=== PATIENT | male | born 1945 | race Caucasian/White ===

== ENCOUNTER 2018-05-11 15:56 | Inpatient (IN) | payer OTHER ==
[~2018-05-11] VITALS: Ht 152.4 cm; Wt 81.6 kg
--- NOTE | ~2018-05-11 | H ---
[address] [address] HISTORY AND PHYSICAL Name: JUNIOR MARTIN Room: [address] IN ..#: [id number] Admission: 05/11/18 Attend Phys: Kishan Zhu MD Discharge: Date of : 41 Report #: [id number] THIS REPORT FOR: //name// For History and Physical please refer to the dictated consultation note in the patient's medical record. By: 0644Medical Records Staff JAMES /BARBARA
[~2018-05-11 15:56] MED LIST: AVODART0.5 MG PO; CELEXA40 MG PO; COLACE100 MG PO; GLYCOLAX POWDER17 G1 PO; OS-CAL 500+D C1 EACH PO; TAMSULOSIN HCL0.4 M1 PO
[2018-05-11 16:02] VITALS: BP 186/119
[2018-05-11 16:18] LABS: ABSOLUTE BASOPHILS 0.1 thou/uL (0.0-0.2); ABSOLUTE EOSINOPHILS 0.1 thou/uL (0.0-0.7); ABSOLUTE LYMPHOCYTES 3.9 thou/uL (0.8-5.3); ABSOLUTE MONOCYTES 0.9 thou/uL (0.0-1.2); ABSOLUTE NEUTROPHILS 5.8 thou/uL (1.6-8.1); BASOPHILS 0.9 %; EOSINOPHILS 1.1 %; HEMATOCRIT 52.6 % (42.0-52.0); HEMOGLOBIN 17.6 gm/dL (14.0-18.0); LYMPHOCYTES 36.1 %; MCH 29.5 pg (26.0-34.0); MCHC 33.4 g/dL (28.0-37.0); MCV 88.4 fL (80.0-100.0); MPV 8.6 fl. (7.2-11.1); NUCLEATED RBCS 0 /100WBC; PLATELET COUNT* 210 thou/uL (150-400); POLYS 53.9 %; RBC 5.95 mil/uL (4.50-6.00); RDW-CV 14.2 % (10.5-14.5); WBC 10.7 thou/uL (4.0-11.0)
[2018-05-11 16:26] LABS: CALCIUM 9.6 mg/dL (8.5-10.1); POTASSIUM 3.7 mmol/L (3.5-5.1)
[2018-05-11 16:31] LABS: APTT 32.8 Seconds (25.0-31.3); PROTIME 10.1 Seconds (9.20-11.50)
[2018-05-11 16:38] LABS: TOTAL BILIRUBIN 0.6 mg/dL (<0.1-1.0); TOTAL PROTEIN 8.2 g/dL (6.4-8.2); TROPONIN-I LEVEL 0.29 ng/mL (<0.06)
[2018-05-11 18:10] VITALS: BP 146/95
--- NOTE | 2018-05-11 18:10 | NUR ---
DOCUMENTATION OF NSG STUDENT Lucille LEMUS REVIEWED & AGREE W/ SAME.
--- NOTE | 2018-05-11 19:28 | NUR ---
ADMITTED FROM ED DENIES CP AT THIS TIME. DR MARLEY PAGED. NO ANSWER.
[2018-05-11 20:00] VITALS: BP 114/80
[2018-05-11 22:00] VITALS: BP 107/78
[2018-05-12] VITALS (33 sets, daily range): BP systolic 95–184; BP diastolic 64–122
--- NOTE | 2018-05-12 06:17 | NUR ---
ASSUMED CARE OF PT AT 1900 PT ALERT AND ORIENTED X4 VS AND ASSESSMENT STABLE PT DENIED ANY CP ONLY COMPLAINT WAS THAT HE WASNT ABLE TO SLEEP OBTAINED ORDERS FOR X1 AMBIEN WITH GOOD EFFECT PT SLEPT THROUGH THE NIGHT AFTER THAT. PT RUNNING SB TO NSR ON THE MONITOR. WILL CONTIUNE EMMETTN OF CARE.
[2018-05-12 09:18] LABS: INR 1.1; PROTIME 10.7 Seconds (9.20-11.50)
[2018-05-12 13:58] LABS: BUN 13 mg/dL (7-18); CHLORIDE 107 mmol/L (98-107); POTASSIUM 4.1 mmol/L (3.5-5.1); SODIUM 139 mmol/L (136-145)
[2018-05-12 13:59] LABS: ANION GAP 10 mmol/L (7-16); CALCIUM 8.8 mg/dL (8.5-10.1); CHOLESTEROL 172 mg/dL (<200); CO2 22 mmol/L (21-32); CREATININE 0.9 mg/dL (0.6-1.3); GLUCOSE 90 mg/dL (70-99); HDL CHOLESTEROL 35 mg/dL (>40); LDL CHOLESTEROL 121 mg/dL (<100); TC:HDL 4.9 Ratio (Not establshd); TRIGLYCERIDE 83 mg/dL (<150); VLDL 17 mg/dL (<40)
[2018-05-12 14:02] LABS: SERUM ASSESSMENT Clear
--- NOTE | 2018-05-12 17:16 | EKG ---
[place] [address] ELECTROCARDIOGRAM REPORT Name: JUNIOR MARTIN Room: [address] ADM IN M.R.#: [id number] Admission: 05/11/18 Attend Phys: Kishan Zhu MD Discharge: Date of : 41 Report #: [id number] THIS REPORT FOR: //name// [facility] ED Test Date: 2018-05-11 Test Time: 16:01:26 Pat Name: JUNIOR MARTIN Department: Room: [facility] Gender: M Platform Beater: TIERRA : 1945 Requested By: Gabby Hernández Order Number: [id number] MD: Kishan Zhu Measurements Intervals [place] Rate: 85 P: 29 OR: 150 QRS: -43 QRSD: 98 T: 0 QT: 348 QTc: 414 Interpretive Statements Sinus rhythm Left anterior fascicular block Repol abnrm suggests ischemia, diffuse leads Compared to ECG 09/06/2012 15:52:12 Early repolarization now present Possible ischemia now present Electronically Signed On 05-12-2018 17:16:29 CDT by Kishan Zhu [email or web address] <ELECTRONICALLY SIGNED> By: Kishan Zhu MD, FACC 05/12/18 1716 1601 1601 Kishan Zhu MD, [facility] /EPI
--- NOTE | 2018-05-12 17:22 | EKG ---
[place] [address] ELECTROCARDIOGRAM REPORT Name: JUNIOR MARTIN Room: [address] ADM IN M.R.#: [id number] Admission: 05/11/18 Attend Phys: Kishan Zhu MD Discharge: Date of : 41 Report #: [id number] THIS REPORT FOR: //name// [facility] Test Date: 2018-05-12 Test Time: 13:37:10 Pat Name: JUNIOR MARTIN Department: Room: [address] Gender: M Supplier Development Manager: : 1945 Requested By: Asher Phelps Order Number: [id number] Izabel MD: Kishan Zhu Measurements Intervals [place] Rate: 70 P: 19 TN: 161 QRS: -43 QRSD: 105 T: 28 QT: 410 QTc: 443 Interpretive Statements Sinus rhythm Left anterior fascicular block Compared to ECG 09/06/2012 15:52:12 Repolarization abnormalities no longer present Electronically Signed On 05-12-2018 17:22:44 CDT by Kishan Zhu [email or web address] <ELECTRONICALLY SIGNED> By: Kishan Zhu MD, [facility] 05/12/18 1722 1337 1337 Kishan Zhu MD, [facility] /EPI
--- NOTE | 2018-05-12 17:34 | NUR ---
PT CARE ASSUMED THIS AM. SR ON MONITOR. O2 2L NC. PT TO OPERATIONS PROGRAM MANAGER AT APPROX 1145. STENT PLACED THROUGH R GROIN. CATH SITE WITH SMALL AMOUNT OF BLOODY DRAINAGE TO BANDAGE AND A SMALL AMOUNT OF BRUISING. NO HEMATOMA. PT UP VERY FREQUENTLY TO URINATE. VOMITED X1 AFTER PROCEDURE. IV ZOFRAN GIVEN. DENIES PAIN. PROGRESSING TOWARDS GOALS.
--- NOTE | 2018-05-12 20:55 | NUR ---
PT. TRANSFERRED VIA WHEELCHAIR TO ROOM 231 AT 2034, REPORT GIVEN TO SONYA STONE. QUESTIONS DENIED.
[2018-05-13 04:00] VITALS: BP 76/46
[2018-05-13 04:44] LABS: HEMATOCRIT 46.1 % (42.0-52.0); MCH 29.1 pg (26.0-34.0); MCHC 32.7 g/dL (28.0-37.0); MCV 89.1 fL (80.0-100.0); MPV 8.7 fl. (7.2-11.1); RBC 5.18 mil/uL (4.50-6.00); RDW-CV 14.3 % (10.5-14.5); WBC 8.3 thou/uL (4.0-11.0)
[2018-05-13 04:58] LABS: HEMOGLOBIN 15.1 gm/dL (14.0-18.0)
[2018-05-13 05:13] VITALS: BP 96/52
--- NOTE | 2018-05-13 06:51 | NUR ---
PT IS ABLE TO COMMUNICATE HIS NEEDS TO STAFF EFFECTIVELY. HE HAS DENIED THE NEED FOR PAIN RELIEF MEDICATION UP TO THIS TIME. PT WAS TRANSFERED FROM ICU TO ROOM 231 DURING THIS SHIFT; VSS, A+OX4. PT HAS VOIDED SEVERAL TIMES SINCE ARRIVING ON . RIGHT GROIN CATH SITE HAS SOME OLD BLOOD, BUT IS INTACT AND SHOWES NO OBSERVABLE EVIDENCE OF A HEMATOMA UP TO THIS TIME. LIKELY DISCHARGE TODAY.
[2018-05-13 08:00] VITALS: BP 103/66
--- NOTE | 2018-05-13 08:44 | CON ---
[address] [address] CONSULTATION Name: RAADEDAJUNIOR Room: [address] IN M.R.#: [id number] Admission: 05/11/18 Attend Phys: Kishan Zhu MD Discharge: Date of : 43 Report #: [id number] THIS REPORT FOR: //name// CC: HUANG Zhu INDICATION: Non-ST elevation myocardial infarction. HISTORY OF PRESENT ILLNESS: The patient is a very pleasant 72-year-old gentleman with no prior cardiac history. He was admitted to the emergency room yesterday with complaints of chest pain. He was found to have an elevated troponin consistent with non-ST elevation myocardial infarction. EKG showed sinus rhythm without acute changes. His only cardiac risk factor is hyperlipidemia. His father had a heart attack in his 70s. He does not smoke. He is not diabetic. He is not hypertensive. At the time of interview, he was chest pain free. He describes the pain beginning at 11:00 yesterday and being intermittent. It radiated to both arms and it was associated with nausea, vomiting and diaphoresis. When the pain recurred, the patient reported to the emergency room and was given nitroglycerin with partial relief and then morphine with complete relief of his chest discomfort. PAST MEDICAL HISTORY: 1. Hypercalcemia, status post parathyroidectomy. 2. Benign prostatic hypertrophy. 3. Depression. PAST SURGICAL HISTORY: 1. Herniorrhaphy. 2. Appendectomy. SOCIAL HISTORY: The patient does not smoke. He does not drink alcohol. ALLERGIES: None reported. HOME MEDICATIONS: None. REVIEW OF SYSTEMS: NEUROLOGIC: He denies convulsions, seizures or focal paralysis. GENERAL: There is no unexplained weight loss or fever. RESPIRATORY: He denies cough, sputum production or underlying lung disease. CARDIAC: As outlined above. GASTROINTESTINAL: Nausea and vomiting, but no hematemesis, melena, or hematochezia. GENITOURINARY: No [place] [address] CONSULTATION Name: RAADEDAJUNIOR Room: [address]#: [id number] Admission: 05/11/18 Attend Phys: Kishan Zhu MD Discharge: Date of : 43 Report #: [id number] HEMATOLOGIC AND LYMPHATIC: No bleeding, anemia, blood clots, or cancer. ALLERGY AND IMMUNOLOGIC: No significant seasonal or medical allergies. PSYCHIATRIC: He has mild depression, no anxiety. 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 SKIN: No recent rashes, hives or chronic skin conditions. EYES: He does wear glasses, but has no acute visual loss. PHYSICAL EXAMINATION: VITAL SIGNS: Stable. Blood pressure 128/83, pulse of 68 and regular. GENERAL: This is a pleasant gentleman, in no distress. Mood and affect appropriate. HEENT: Extraocular muscles intact. Mucous membranes are moist. NECK: Shows no jugular venous distention. There are no carotid bruits. CHEST: Reveals clear lung garay without wheezes or rales. CARDIAC: Reveals regular rhythm with normal S1 and S2. I do not appreciate gallop or murmur. ABDOMEN: Reveals normal bowel sounds. The abdomen is soft and nontender. EXTREMITIES: Shows no edema. Peripheral pulses are 2+ and easily palpable. SKIN: Warm and dry. LABS: Reviewed. Electrolytes, BUN and creatinine are normal. LFTs are normal. Troponin peak 7.37. Lipid profile is pending. White blood cell count 10.7, hemoglobin 17.6, and platelet count 210,000. Chest x-ray shows no acute cardiopulmonary abnormality. IMPRESSION AND RECOMMENDATIONS: 1. Non-ST elevation myocardial infarction. The patient has been started on a heparin drip and given aspirin. We will take to the cardiac catheterization lab for angiography and possible intervention. 2. Probable hyperlipidemia. We will start statin agent. Fasting lipid profile pending. <ELECTRONICALLY SIGNED> By: Kishan Zhu MD, FACC 05/13/18 0844 0856 1024Micmorgan Zhu MD, FACC /nt
[2018-05-13] MEDS ORDERED: ASPIR 8181 MG PO (09:23)
[2018-05-13] MEDS ORDERED: PLAVIX 75 MG TA75 M1 PO (09:23)
[2018-05-13] MEDS ORDERED: LIPITOR40 MG PO (09:23)
[2018-05-13] MEDS ORDERED: LOPRESSOR50 PO (09:23)
[2018-05-13 10:00] VITALS: BP 183/118
--- NOTE | 2018-05-13 10:00 | NUR ---
VSS ASSUMED CARE IN THE AM, ASSESSMENT PERFORMED AND CHARTED, FALL PRECAUTION IN PLACE AND CALL LIGHT IN REACH, PT IS A&O4 AND ON RA AND DENIES ANY PAIN RIGHT GROIN CATH SITE IS C/D/I, PT IS TRACING SR ON THE MONITOR AND IS UP AD JEAN PAUL, AT THIS TIME I HAVE RECIEVED D/C ORDERS, AND FILLED OUT D/C PAPERS, PT IV AND TELE MONITOR WHERE TAKEN OFF, SCRIPTS AND DRUG INFO SHEETS GIVEN TO PT, PT WALKED OUT WITH STAFFT TO CAR, PT BELONGINGS GATHERED AND PLACED IN BAG, PT DENIES ANY QUESTIONS AT TIME OF D/C, HOURLY ROUNDS COMPLETED.
[2018-05-13 10:53] VITALS: BP 103/66; BP 183/118
--- NOTE | 2018-05-13 11:18 | EKG ---
[place] [address] ELECTROCARDIOGRAM REPORT Name: JUNIOR MARTIN Room: [address] ADM IN M.R.#: [id number] Admission: 05/11/18 Attend Phys: Kishan Zhu MD Discharge: Date of : 41 Report #: [id number] THIS REPORT FOR: //name// [facility] Test Date: 2018-05-13 Test Time: 08:21:33 Pat Name: JUNIOR MARTIN Department: Room: [facility] Gender: M Jumpbasting Canvas Baster: : 1945 Requested By: Asher Phelps Order Number: [id number] Reading MD: Asher Phelps Measurements Intervals [place] Rate: 65 P: 12 OK: 168 QRS: -43 QRSD: 97 T: 55 QT: 470 QTc: 489 Interpretive Statements Sinus rhythm Left anterior fascicular block Borderline prolonged QT interval Compared to ECG 05/12/2018 13:37:10 No significant changes Electronically Signed On 05-13-2018 11:17:52 CDT by Asher Phelps [email or web address] <ELECTRONICALLY SIGNED> By: Asher Phelps MD, [facility] 05/13/18 1117 0 0 Asher Phelps MD, [facility] /EPI
--- NOTE | 2018-05-13 16:21 | CARD ---
[address] [address] CARDIAC CATH REPORT Name: NELLJUNIOR HARVEY Lynne Room: [address]#: [id number] Admission: 05/11/18 Attend Phys: Kishan Zhu MD Discharge: 05/13/18 Date of : 43 Report #: [id number] THIS REPORT FOR: //name// APPROVED REPORT Study performed: 05/12/2018 11:31:55 Patient Details Patient Status: In-Patient Room #: The patient is a 72 year-old male Event Personnel Kishan Zhu Loader Helper, Henrietta Mccormick RN RN, Zeus Jaimes, Lisa Rosas RTR Scrub, Asher Phelps Loader Helper Procedures Performed cath pci Indication Non-STEMI Risk Factors Arterial Hypertension, Hypercholesterolemia Admission/Lab Medications/Medications given during procedure Glycoprotein IllbIlla Inhibitors, Heparin Unfract. Procedure Narrative The patient was brought electively to the Cardiac Catheterization Laboratory and was prepped and draped in a sterile manner. The right femoral was infiltrated with 1% Lidocaine subcutaneous anesthesia. A 6fr Ultimum Sheath sheath was inserted into the right femoral artery. Coronary angiography was performed using coronary diagnostic catheters. The right coronary system was accessed and visualized with a Diagnostic - JR4 catheter. The left coronary system was accessed and visualized with a Diagnostic - JL4 catheter. The left ventricle was accessed and visualized with a Diagnostic - ANG PIG catheter. Left ventricular/Aortic Valve gradient assessed via catheter pullback. Left ventriculogram was performed in BEARD projection. Closure device was deployed with a 6 Fr Angioseal. The patient tolerated the procedure well and there were no complications associated with the procedure. [place] [address] CARDIAC CATH REPORT Name: JUNIOR MARTIN Room: [address]#: [id number] Admission: 05/11/18 Attend Phys: Kishan Zhu MD Discharge: 05/13/18 Date of : 43 Report #: [id number] Intraoperative Conscious Sedation Sedation start time: 1210 Case end Time: 1256 Fentanyl 25 mcg Versed 2 mg Fluoro Time: 6.6 minutes Dose: DAP 134673 cGycm2 1762 mGy Contrast Type and Amount: Visipaque 205 ml Coronary Angiography The patient's coronary anatomy is right dominant. Diagnostic Cath Left Main Normal LAD 70% proximal stenoses at the bifurcation and involving the ostium of the first diagonal branch. The remainder the vessel is free of significant disease. Diagonal 1 70% ostial narrowing. Diagonal 2 10% proximal narrowing. Circumflex 99% subtotal occlusion proximally. 50% narrowing in the midportion. OM1 Normal. OM2 Mild 10% plaquing. OM3 Mild 10% plaquing. Right Coronary Large dominant vessel with 10% mid and 30% distal mild plaquing. R PDA 50% proximal narrowing. RPLV Normal. Left Ventriculography The left ventricle is normal in size with preserved contractility. The left ventricular ejection fraction is estimated to be 55-60%. Left ventricular wall motion abnormalities are present. There is mild anterolateral hypokinesis. Hemodynamics The aortic pressure is 120/68 mmHg with a mean of 94 mmHg. The left ventricular pressure is 123/0 mmHg with a mean of mmHg. The left ventricular end diastolic pressure is 13 mmHg. There was no gradient across the aortic valve upon pullback. Pullback from the left ventricle to the aorta revealed no gradient across the aortic valve. PCI Technique Lesion Anticoagulation was achieved with Heparin. IV bolus of aggrastat given Percutaneous coronary [place] [address] CARDIAC CATH REPORT Name: JUNIOR MARTIN Room: [address]#: [id number] Admission: 05/11/18 Attend Phys: Kishan Zhu MD Discharge: 05/13/18 Date of : 43 Report #: [id number] proximal circumflex artery segment. The lesion stenosis prior to intervention was 99% with SOM 2 flow. A 6F XB 4.0 Guide Catheter was used to engage the lm ostium. A IG: BMW 190cm Interventional Guidewire was used to cross the lesion. BALLOON DILATION A Balloon catheter Trek RX 2.5 X 8 was inserted and inflated up to 16.00atm for 17seconds. Repeat angiography revealed the following post-dilatation results: 50% stenosis. STENT DEPLOYMENT A drug-eluting stent Xience Alpine RX 3.0 X 12 was inserted and inflated up to 8.00atm for 17seconds. Repeat angiography revealed the following post-stent deployment results: 0% stenosis. Additional Inflation: 8.00atm for 10seconds. Additional Inflation: 16.00atm for 22seconds. Final angiography reveals 0 % stenosis with SOM 3 flow. Conclusion 1. Severe two-vessel coronary artery disease as outlined above. 2. Preserved left ventricular systolic function with mild wall motion abnormalities as outlined above. 3. Normal left ventricular end-diastolic pressure. 4. successful placement of a drug eluting stent in the circumflex Recommendations 1. Consider percutaneous coronary intervention left anterior descending/diagonal in staged fashion. 2. Continue aggressive risk factor modification. Medications Administered Clopidogrel Diagnostic Cath Approved by: Kishan Zhu MD Date/Time: <ELECTRONICALLY SIGNED> By: Asher Phelps MD, [facility] 05/13/18 1621 162 1621Dfranco Phelps MD, FAC /INF
--- NOTE | 2018-05-15 08:29 | D ---
[facility] [address] [place] [address] DISCHARGE SUMMARY Name: JUNIOR MARTIN Room: [address] IN M.R.#: [id number] Admission: 05/11/18 Attend Phys: Kishan Zhu MD Discharge: 05/13/18 Date of : 41 Report #: [id number] THIS REPORT FOR: //name// CC: Remberto Zhu DATE OF SERVICE: 05/13/2018 DIAGNOSES: 1. Non-ST elevation myocardial infarction. 2. Hyperlipidemia. HOSPITAL COURSE: The patient was admitted to the hospital with chest pain that was intermittent. He was noted to have an elevated troponin. EKG showed sinus rhythm with some ST segment depression, but no elevation. The patient was placed on aspirin and heparin drip. The following day, he underwent cardiac catheterization, which showed a 99% proximal circumflex lesion for which he received a single drug-eluting stent. He also had a high-grade stenosis involving the bifurcation of the proximal LAD and first diagonal branch. Plans were for intervention to this region in staged fashion in the near future. The patient's hospitalization was unremarkable. By left ventriculogram, his EF is approximately 50-55% with some slight anterolateral hypokinesis. He is being discharged to home on 05/13/2018, in stable fashion. DISCHARGE MEDICATIONS: 1. Aspirin 81 mg daily. 2. Plavix 75 mg daily. 3. Metoprolol tartrate 50 mg b.i.d. 4. Atorvastatin 40 mg daily. DISPOSITION: The patient is to follow up with our nurse practitioner on 05/20/2018 at 1:00 p.m. in the [place] office. The arrangements for followup with Dr. Phelps and further intervention will be made at that time. <ELECTRONICALLY SIGNED> By: Kishan Zhu MD, FACC 05/15/18 0829 0935 1002Michael Darvin Zhu MD, FACC /nt
== END 2018-05-13 13:30 | disposition home or self-care (01) | DRG 246 ==
LOC: M.ERS 15:56 → M.TBA-ER 17:24 → M.ICU 17:24 → M.2W 05-12 20:49
PROVIDERS: Internal Medicine Cardiovascular Disease; Personal Emergency Response Attendant; ADMIT Internal Medicine Cardiovascular Disease
PROC: B2151ZZ Fluoroscopy of Left Heart using Low Osmolar Contrast (ICD-10-PCS; principal; 2018-05-12)
PROC: B2111ZZ Fluoroscopy of Multiple Coronary Arteries using Low Osmolar Contrast (ICD-10-PCS; principal; 2018-05-12)
PROC: 4A023N7 Measurement of Cardiac Sampling and Pressure, Left Heart, Percutaneous Approach (ICD-10-PCS; principal; 2018-05-12)
PROC: 027034Z Dilation of Coronary Artery, One Artery with Drug-eluting Intraluminal Device, Percutaneous Approach (ICD-10-PCS; principal; 2018-05-12)
DX: I21.4 Non-ST elevation (NSTEMI) myocardial infarction (principal); N17.0 Acute kidney failure with tubular necrosis; J96.00 Acute respiratory failure, unspecified whether with hypoxia or hypercapnia; N40.0 Benign prostatic hyperplasia without lower urinary tract symptoms; Z84.89 Family history of other specified conditions; F32.9 Major depressive disorder, single episode, unspecified; J44.9 Chronic obstructive pulmonary disease, unspecified; E78.5 Hyperlipidemia, unspecified; Z79.82 Long term (current) use of aspirin; Z79.899 Other long term (current) drug therapy; Z82.49 Family history of ischemic heart disease and other diseases of the circulatory system; E89.0 Postprocedural hypothyroidism

== ENCOUNTER 2018-05-27 08:33 | Observation (INO) | payer OTHER ==
[~2018-05-27] VITALS: Ht 175.3 cm; Wt 75.7 kg
[2018-05-27] VITALS (17 sets, daily range): BP systolic 106–145; BP diastolic 64–83
--- NOTE | ~2018-05-27 | EKG ---
[place] [address] ELECTROCARDIOGRAM REPORT Name: JUNIOR MARTIN Room: [facility]#: [id number] Admission: 05/27/18 Attend Phys: Asher Phelps MD, F Discharge: Date of : 43 Report #: [id number] THIS REPORT FOR: //name// [facility] Test Date: 2018-05-27 Test Time: 09:43:05 Pat Name: JUNIOR MARTIN Department: Room: Gender: M [employer]: : 1945 Requested By: Asher Phelps Order Number: [id number] Reading MD: Measurements Intervals [place] Rate: 52 P: -4 WI: 162 QRS: -35 QRSD: 101 T: 20 QT: 407 QTc: 379 Interpretive Statements Sinus rhythm Left axis deviation Compared to ECG 05/13/2018 08:21:33 Left-axis deviation now present Left anterior fascicular block no longer present [email or web address] By: 0943 0943 Epiphany EpiphanyMD /EPI
--- NOTE | ~2018-05-27 | H ---
[address] [address] HISTORY AND PHYSICAL Name: JUNIOR MARTIN Room: [address] Evelyn MTyRTy#: [id number] Admission: 05/27/18 Attend Phys: Asher Phelps MD, F Discharge: 05/28/18 Date of : 41 Report #: [id number] THIS REPORT FOR: //name// Please refer to the History and Physical performed in the physician's office. By: [facility]7Medical Records Staff JAMES /BARBARA
[~2018-05-27 08:33] MED LIST changes: +ASPIR 8181 MG PO; +LIPITOR40 MG PO; +LOPRESSOR50 PO; +PLAVIX 75 MG TA75 M1 PO
[2018-05-27 09:08] LABS: HEMATOCRIT 48.4 % (42.0-52.0); HEMOGLOBIN 16.2 gm/dL (14.0-18.0); MCH 29.5 pg (26.0-34.0); MCHC 33.5 g/dL (28.0-37.0); MPV 8.6 fl. (7.2-11.1); RBC 5.49 mil/uL (4.50-6.00); RDW-CV 13.5 % (10.5-14.5); WBC 7.7 thou/uL (4.0-11.0)
[2018-05-27 09:18] LABS: APTT 30.6 Seconds (25.0-31.3); INR 1.1; PROTIME 10.7 Seconds (9.20-11.50)
[2018-05-27 09:23] LABS: ALBUMIN 3.9 g/dL (3.4-5.0); ALKALINE PHOSPHATASE 106 U/L (46-116); ANION GAP 9 mmol/L (7-16); BUN 21 mg/dL (7-18); CHLORIDE 105 mmol/L (98-107); CHOLESTEROL 127 mg/dL (<200); CO2 24 mmol/L (21-32); GLUCOSE 87 mg/dL (70-99); HDL CHOLESTEROL 31 mg/dL (>40); LDL CHOLESTEROL 77 mg/dL (<100); SGOT 30 U/L (15-37); SGPT 44 U/L (30-65); SODIUM 138 mmol/L (136-145); TC:HDL 4.1 Ratio (Not establshd); TOTAL BILIRUBIN 0.9 mg/dL (<0.1-1.0); TOTAL PROTEIN 7.9 g/dL (6.4-8.2); TRIGLYCERIDE 96 mg/dL (<150); VLDL 19 mg/dL (<40)
[2018-05-27 09:24] LABS: SERUM ASSESSMENT Clear
--- NOTE | 2018-05-27 12:07 | EKG ---
[place] [address] ELECTROCARDIOGRAM REPORT Name: JUNIOR MARTIN Room: [facility]#: [id number] Admission: 05/27/18 Attend Phys: Asher Phelps MD, F Discharge: Date of : 41 Report #: [id number] THIS REPORT FOR: //name// [facility] Test Date: 2018-05-27 Test Time: 09:43:05 Pat Name: JUNIOR MARTIN Department: Room: Gender: Dancing Teacher: : 1945 Requested By: Asher Phelps Order Number: [id number] Izabel MD: Asher Phelps Measurements Intervals [place] Rate: 52 P: -4 [place]: 162 QRS: -35 QRSD: 101 T: 20 QT: 407 QTc: 379 Interpretive Statements Sinus bradycardia Left axis deviation Compared to ECG 05/13/2018 08:21:33 rate slowed Electronically Signed On 05-27-2018 12:07:45 CDT by Asher Phelps [email or web address] <ELECTRONICALLY SIGNED> By: Asher Phelps MD, [facility] 05/27/18 1207 0943 2 Asher Phelps MD, FACC /EPI
--- NOTE | 2018-05-27 16:48 | EKG ---
[place] [address] ELECTROCARDIOGRAM REPORT Name: JUNIOR MARTIN Room: [address] M.R.#: [id number] Admission: 05/27/18 Attend Phys: Asher Phelps MD, F Discharge: Date of : 41 Report #: [id number] THIS REPORT FOR: //name// [facility] Test Date: 2018-05-27 Test Time: 13:53:54 Pat Name: JUNIOR MARTIN Department: Room: [address] Gender: M Electrical Mechanic: : 1945 Requested By: Asher Phelps Order Number: [id number] Reading MD: Asher Phelps Measurements Intervals [place] Rate: 58 P: -2 OK: 165 QRS: -44 QRSD: 102 T: 36 QT: 436 QTc: 429 Interpretive Statements Sinus rhythm LAD, consider left anterior fascicular block Low voltage, precordial leads Compared to ECG 05/27/2018 09:43:05 no change Electronically Signed On 05-27-2018 16:47:49 CDT by Asher Phelps [email or web address] <ELECTRONICALLY SIGNED> By: Asher Phelps MD, FAC 05/27/18 1647 1353 1353 Asher Phelps MD, [facility] /EPI
--- NOTE | 2018-05-27 18:27 | CARD ---
[address] [address] CARDIAC CATH REPORT Name: NELLJUNIOR HARVEY Lynne Room: [address] Yvonne#: [id number] Admission: 05/27/18 Attend Phys: Asher Phelps MD, F Discharge: Date of : 41 Report #: [id number] THIS REPORT FOR: //name// APPROVED REPORT Study performed: 05/27/2018 08:55:54 Patient Details Patient Status: Out-Patient Room #: The patient is a 72 year-old male Event Personnel Asher Phelps Delivery Rep, Marilyn Cerna RN Production Tech, Silvia Strong RTR Monitor, Lisa Rosas RTR Scrub Procedures Performed Art Access - L femoral artery* Left Heart Cath w/or w/o Coronaries LHC PTCA Single Vessel DIAG PCISINGLE AHMET Place w/wo Plasty Single LAD Indication Chest pain Risk Factors Hypercholesterolemia Previous Procedures/Diagnoses Previous PCI, Previous PR Admission/Lab Medications/Medications given during procedure Heparin Unfract. Procedure Narrative The patient was brought electively to the Cardiac Catheterization Laboratory and was prepped and draped in a sterile manner. The left femoral was infiltrated with 2% Lidocaine subcutaneous anesthesia. A 7Fr X 11cm Sheath sheath was inserted into the left femoral artery. Coronary angiography was performed using coronary diagnostic catheters. The right coronary system was accessed and visualized with a Diagnostic 6 Fr JR4 catheter. The left coronary system was accessed and visualized with a 7FR XBLAD 4.0 catheter. The left ventricle was accessed and visualized with a Diagnostic 6 Fr angled pigtail catheter. Left ventricular/Aortic Valve gradient assessed via catheter pullback. Closure device was deployed with a 6 Fr Angioseal STS 6Fr. The patient tolerated the procedure well and there were no [facility] [address] [place] [address] CARDIAC CATH REPORT Name: JUNIOR MARTIN Lynne Room: [address]#: [id number] Admission: 05/27/18 Attend Phys: Asher Phelps MD, F Discharge: Date of : 43 Report #: [id number] complications associated with the procedure. There was no hematoma. Intraoperative Conscious Sedation Sedation start time: 10:08 Case end Time: 11:20 Versed 2.0 mg Fluoro Time: 12.4 minutes Dose: DAP 209497 cGycm2 1855.52 mGy Contrast Type and Amount: Omnipaque 200 ml Coronary Angiography The patient's coronary anatomy is right dominant. Diagnostic Cath Left Main 0% stenosis LAD 80% stenosis at takeoff of second diagonal branch, and 60% stenosis prior to takeoff of third diagonal branch. Two 60% stenoses noted in lad beyond second diagonal branch Diagonal 2 50% ostial stenosis Circumflex stent in proximal circumflex had 0% stenosis Right Coronary 30% stenosis noted in proximal rca Left Ventriculography Left Ventriculography was not performed. Hemodynamics The aortic pressure is 83/49 mmHg with a mean of 64 mmHg. The left ventricular pressure is 86/6 mmHg with a mean of mmHg. The left ventricular end diastolic pressure is 6 mmHg. There was no gradient across the aortic valve upon pullback. Pullback from the left ventricle to the aorta revealed no gradient across the aortic valve. PCI Technique Lesion Anticoagulation was achieved with Heparin. Patient was preloaded with Plavix. Percutaneous coronary intervention was performed on the mid left anterior descending artery segment. The lesion stenosis prior to intervention was 80% with SOM 3 flow. A 7FR XBLAD 4.0 Guide Catheter was used to engage the lm ostium. A BMW 190cm Interventional Guidewire was used to cross the lesion. BALLOON DILATION A Balloon catheter Trek RX 2.5 X 12 was inserted and inflated up to 8.00atm for 10seconds. Repeat angiography [place] [address] CARDIAC CATH REPORT Name: JUNIOR MARTIN Room: [address]#: [id number] Admission: 05/27/18 Attend Phys: Asher Phelps MD, F Discharge: Date of : 41 Report #: [id number] post-dilatation results: 40% stenosis. Additional Inflation: 16.00atm for 22seconds. Second BMW wire was placed into the second diagonal branch STENT DEPLOYMENT A drug-eluting stent Xience Alpine RX 2.75X18 was inserted and inflated up to 8.00atm for 14seconds. Repeat angiography revealed the following post-stent deployment results: 0% stenosis. Additional Inflation: 14.00atm for 15seconds. Additional Inflation: 17.00atm for 17seconds. Final angiography reveals 0 % stenosis with SOM 3 flow. COMMENTS Post stenting, there appeared to be 60% narrowing of the ostium of the second diagonal branch PCI Technique Lesion 2 Percutaneous Coronary Intervention was performed on the second diagnonal branch segment. Patient was preloaded with Plavix. Percutaneous coronary intervention was performed on the second diagonal branch segment. The lesion stenosis prior to intervention was 60%% with SOM 3 flow. A 7FR XBLAD 4.0 Guide Catheter was used to engage the lm ostium. A ProwaterFlex 180CM Interventional Guidewire was used to cross the lesion. Balloon Dilation A Balloon catheter Mini Trek RX 2.0 X 8 was inserted and inflated up to 12.00atm for 16seconds. Repeat angiography revealed the following post-dilatation results: 0% stenosis. Additional Inflation: 18.00atm for 21seconds. Unable to rewire diagonal branch after placing stent in lad. ProwaterFlex wire was able to wire diagonal branch Final angiography reveals 0 % stenosis with SOM 3 flow. Conclusion 1. no restenosis of stent in the circumflex artery 2. successful placement of a drug eluting stent in the proximal lad 3. plaque shift into ostium of second diagonal branch following stenting of lad treated by PTCA of diagonal ostium Recommendations [place]iac [place] [address] CARDIAC CATH REPORT Name: JUNIOR MARTIN Room: [address] M.R.#: [id number] Admission: 05/27/18 Attend Phys: Asher Phelps MD, F Discharge: Date of : 41 Report #: [id number] Aggressive Medical Therapy Medications Administered Clopidogrel <ELECTRONICALLY SIGNED> By: Asher Phelps MD, FAC 05/27/181826 26 26Daiza Phelps MD, FACC /INF
[2018-05-28] VITALS: BP 106/74
[2018-05-28 04:00] VITALS: BP 109/52
[2018-05-28 05:00] LABS: HEMATOCRIT 43.4 % (42.0-52.0); HEMOGLOBIN 14.5 gm/dL (14.0-18.0); MCH 29.4 pg (26.0-34.0); MCHC 33.5 g/dL (28.0-37.0); MCV 87.6 fL (80.0-100.0); MPV 8.4 fl. (7.2-11.1); RBC 4.95 mil/uL (4.50-6.00); RDW-CV 13.9 % (10.5-14.5); WBC 6.8 thou/uL (4.0-11.0)
[2018-05-28 08:00] VITALS: BP 133/75
--- NOTE | 2018-05-28 11:41 | EKG ---
[place] [address] ELECTROCARDIOGRAM REPORT Name: JUNIOR MARTIN Room: [address] M.R.#: [id number] Admission: 05/27/18 Attend Phys: Asher Phelps MD, F Discharge: 05/28/18 Date of : 41 Report #: [id number] THIS REPORT FOR: //name// [facility] Test Date: 2018-05-28 Test Time: 08:37:45 Pat Name: JUNIOR MARTIN Department: Room: [address] Gender: M Coding Clerk: : 1945 Requested By: Asher Phelps Order Number: [id number] Reading MD: Asher Phelps Measurements Intervals [place] Rate: 67 P: 13 WV: 162 QRS: -39 QRSD: 96 T: 11 QT: 414 QTc: 437 Interpretive Statements Sinus rhythm Probable left atrial enlargement Left axis deviation Low voltage, precordial leads Probable anteroseptal infarct, old Compared to ECG 05/27/2018 13:53:54 Myocardial infarct finding now present Electronically Signed On 05-28-2018 11:41:25 CDT by Asher Phelps [email or web address] <ELECTRONICALLY SIGNED> By: Asher Phelps MD, [facility] 05/28/18 1141 0837 0837 Asher Phelps MD, [facility] /EPI
--- NOTE | 2018-05-29 17:14 | D ---
[address] [address] DISCHARGE SUMMARY Name: RAADEDAJUNIOR Lynne Room: [address] Evelyn Russell#: [id number] Admission: 05/27/18 Attend Phys: Asher Phelps MD, F Discharge: 05/28/18 Date of : 41 Report #: [id number] THIS REPORT FOR: //name// CC: Asher Nicole DATE OF SERVICE: 05/28/2018 DISCHARGE DIAGNOSES: 1. Coronary artery disease. 2. Hyperlipidemia. CONSULTANTS: None. PROCEDURES: Left heart catheterization with placement of a drug-eluting stent in the left anterior descending artery and balloon angioplasty of the diagonal artery. PRIMARY CARE PHYSICIAN: Dr. Remberto Nicole HISTORY OF PRESENT ILLNESS: The patient is a 72-year-old single white male who was brought to the outpatient department to undergo repeat cardiac catheterization. The patient had no previous history of heart disease. In fact, he was on no medications, so he presented to [place] on 05/11 with chest pain. He was found to have evidence of a non-STEMI. He was seen by my partner, Dr. Zhu, who performed a cardiac catheterization on 05/12. This revealed normal left ventricular function. There was a 70% narrowing of the proximal left anterior descending artery at the takeoff of the first diagonal branch, 60% narrowing in the more distal LAD. The first diagonal branch had a 70% ostial stenosis. The circumflex had a 99% subtotal occlusion proximally. The right coronary artery had no significant disease. I then performed urgent angioplasty and placed a single drug-eluting stent in the circumflex artery. He tolerated the procedure well. He was placed on a beta cathie, statin drug, Plavix and aspirin. He was discharged and returned to see my nurse practitioner a week later. He is electively admitted at this time for stenting of the LAD. He denies any recent chest pain, shortness of breath, syncope, or bleeding. Past medical history otherwise is significant for parathyroidectomy, hernia repair, appendectomy. He had no history of hypertension or diabetes. He was found to have hyperlipidemia on his recent admission with cholesterol of 172, triglyceride 83, HDL 35, LDL 121. Recent chest x-ray showed no acute abnormality. PHYSICAL EXAMINATION: VITAL SIGNS: His blood pressure was 110/60 with a pulse of 60. CHEST: [place] [address] DISCHARGE SUMMARY Name: JUNIOR MARTIN [address] [id number] Admission: 05/27/18 Attend Phys: Asher Phelps MD, F Discharge: 05/28/18 Date of : 41 Report #: [id number] CARDIAC: Regular rate and rhythm. ABDOMEN: Soft. EXTREMITIES: No edema. SKIN: Warm and dry. NEUROLOGIC: Nonfocal. LABORATORY DATA: ECG showed a sinus bradycardia without ST or T-wave changes. His lab work, sodium was 138, potassium 4.0, his BUN is 21, creatinine is 1.0 and glucose 87. Liver function studies were normal. His white blood cell count was 6.8 and hemoglobin 14.5. HOSPITAL COURSE: The patient was brought to the outpatient department. I performed left heart catheterization from the left femoral artery since an Angio-Seal had been placed in the right femoral artery. Results showed no restenosis of the stent in the circumflex. The right coronary had no significant disease. Left ventriculogram was not performed. There was again identified an 80% proximal narrowing of the LAD at the takeoff of first diagonal branch that had an ostial at least 50% stenosis. There was a more distal 60% narrowing of the LAD. I then placed a single drug-eluting stent in the LAD. There was some compromise of the takeoff of the ostium of the first diagonal branch. I then performed a balloon angioplasty of the ostium with a good result. He tolerated the procedure well. An Angio-Seal was placed. He had no further chest pain, arrhythmias or heart failure. Prior to discharge, the patient was ambulating without complaints. He had no significant hematoma in the groin. His beta cathie was held because of bradycardia. He was discharged on his home medications that he recently was started on including aspirin 81 mg a day, Lipitor 40 mg a day, Plavix 75 mg a day, metoprolol 50 mg twice a day and he was given nitroglycerin to take as needed for chest pain. At the time of discharge, he had a blood pressure of 110/60, pulse 60 and he is afebrile. He was discharged to return to care of Dr. Remberto Nicole for routine medical care. He is scheduled to see my nurse practitioner in the cardiology clinic in 2 weeks. He will see Dr. Zhu in Cardiology Clinic in July. His prognosis is guarded due to his diffuse coronary artery disease. I did recommend he start an exercise program, maintain a low fat diet. I suggest he enroll in cardiac rehabilitation. He was to contact my office if he had recurrent chest pain or bleeding. <ELECTRONICALLY SIGNED> By: Asher Phelps MD, [facility] 05/29/18 1714 0723 [id number] Nadira Phelps MD, FACC /nt
== END 2018-05-28 10:57 | disposition home or self-care (01) ==
LOC: M.CL 08:33 → M.2W 11:59
PROVIDERS: ADMIT Internal Medicine Cardiovascular Disease
DX: I25.119 Atherosclerotic heart disease of native coronary artery with unspecified angina pectoris (principal); E78.5 Hyperlipidemia, unspecified; F32.9 Major depressive disorder, single episode, unspecified; N28.9 Disorder of kidney and ureter, unspecified; I25.2 Old myocardial infarction; R79.89 Other specified abnormal findings of blood chemistry; Z90.49 Acquired absence of other specified parts of digestive tract; Z98.890 Other specified postprocedural states; Z87.891 Personal history of nicotine dependence

== ENCOUNTER → 2018-10-20 | Outpatient (CLI) | payer OTHER | LOC: M.CT 13:30 | DX: K76.0 Fatty (change of) liver, not elsewhere classified (principal); J98.11 Atelectasis; K76.89 Other specified diseases of liver; E04.9 Nontoxic goiter, unspecified ==

== ENCOUNTER → 2018-10-26 | Outpatient (CLI) | payer OTHER | LOC: M.ULTRA 11:12 | DX: E04.9 Nontoxic goiter, unspecified (principal) ==

== ENCOUNTER 2020-01-11 09:03 | Inpatient (IN) | payer MEDICARE ==
[~2020-01-11] VITALS: Ht 175.3 cm; Wt 82.0 kg
[2020-01-11 09:11] VITALS: BP 178/127
[2020-01-11 09:56] LABS: WBC ND thou/uL (4.0-11.0)
[2020-01-11 09:57] LABS: HEMOGLOBIN ND gm/dL (14.0-18.0); RBC ND mil/uL (4.50-6.00)
[2020-01-11 09:58] LABS: HEMATOCRIT ND % (42.0-52.0); MCH ND pg (26.0-34.0); MCHC ND g/dL (28.0-37.0); MCV ND fL (80.0-100.0)
[2020-01-11 09:59] LABS: RDW-CV ND % (10.5-14.5)
[2020-01-11 10:00] LABS: MPV ND fl. (7.2-11.1); PLATELET COUNT* ND thou/uL (150-400); POLYS ND %
[2020-01-11 10:01] LABS: BASOPHILS ND %; EOSINOPHILS ND %; LYMPHOCYTES ND %; MONOCYTES ND %
[2020-01-11 10:02] LABS: ABSOLUTE LYMPHOCYTES ND thou/uL (0.8-5.3); ABSOLUTE MONOCYTES ND thou/uL (0.0-1.2); ABSOLUTE NEUTROPHILS ND thou/uL (1.6-8.1)
[2020-01-11 10:03] LABS: ABSOLUTE BASOPHILS ND thou/uL (0.0-0.2); ABSOLUTE EOSINOPHILS ND thou/uL (0.0-0.7)
[2020-01-11 10:04] LABS: NUCLEATED RBCS ND /100WBC
[2020-01-11 10:04] LABS: ABSOLUTE EOSINOPHILS 0.1 thou/uL (0.0-0.7); ABSOLUTE LYMPHOCYTES 1.4 thou/uL (0.8-5.3); ABSOLUTE MONOCYTES 0.6 thou/uL (0.0-1.2); ABSOLUTE NEUTROPHILS 5.4 thou/uL (1.6-8.1); BASOPHILS 0.5 %; EOSINOPHILS 0.9 %; HEMATOCRIT 35.3 % (42.0-52.0); HEMOGLOBIN 12.6 gm/dL (14.0-18.0); LYMPHOCYTES 18.6 %; MCH 29.7 pg (26.0-34.0); MCHC 35.6 g/dL (28.0-37.0); MCV 83.4 fL (80.0-100.0); MONOCYTES 7.9 %; MPV 8.3 fl. (7.2-11.1); NUCLEATED RBCS 0 /100WBC; PLATELET COUNT* 199 thou/uL (150-400); POLYS 72.1 %; RBC 4.23 mil/uL (4.50-6.00); RDW-CV 13.3 % (10.5-14.5); WBC 7.5 thou/uL (4.0-11.0)
[2020-01-11 10:17] LABS: CALCIUM 8.5 mg/dL (8.5-10.1); CREATININE 8.1 mg/dL (0.6-1.3); POTASSIUM 3.4 mmol/L (3.5-5.1)
[2020-01-11 10:21] LABS: TOTAL BILIRUBIN 0.5 mg/dL (<0.1-1.0); TOTAL PROTEIN 7.1 g/dL (6.4-8.2)
[2020-01-11 10:59] LABS: URINE BILIRUBIN NEGATIVE (Negative); URINE BLOOD 3+ (Negative); URINE CLARITY CLEAR; URINE COLOR YELLOW; URINE GLUCOSE-RANDOM NEGATIVE (Negative); URINE KETONES NEGATIVE (Negative); URINE LEUKOCYTES-REFLEX NEGATIVE (Negative); URINE NITRITE-REFLEX NEGATIVE (Negative); URINE PROTEIN TRACE (Negative); URINE SPECIFIC GRAVITY 1.015 (1.005-1.030); URINE UROBILINOGEN 0.2 E.U./dl (0.2-1.0)
[2020-01-11 11:00] LABS: BACTERIA-REFLEX 1-9 Few /HPF (None Seen); CASTS None Seen /LPF (None Seen); CRYSTALS None Seen /LPF (None Seen); MUCUS 0-3 Light strn/LPF (None Seen); SQUAMOUS 0-3 Few /LPF (0-3); URINE WBC-REFLEX 0-5 Rare /HPF (0-5)
[2020-01-11 11:03] LABS: URINE POTASSIUM-RANDOM 5.4 mmol/L
[2020-01-11 11:35] VITALS: BP 162/97
[2020-01-11 12:06] VITALS: BP 174/107
--- NOTE | 2020-01-11 12:17 | NUR ---
RECEIEVIED REPORT FROM RC RN IN ER OF EXPECTED ADMISSION AT 1130- DX: ACUTE URINARY RETENTION WITH ACUTE RENAL FAILURE- PT ARRIVED TO ROOM 208 VIA CART, SBA TO BED- TYING IN MACHINE OPERATOR PLACED ORDERED, TRACING SR- PT A&O X4- CONT OF BOWEL AND BLADDER- ARGUETA IN PLACE D/D CLEART CARL/ORANGE URINE, R/T RETENTION; GOD OUT PUT NOTED- SBA WITH TRANSFERS FOR SAFETY- LCTA, RESP EVEN AND UN-LABORED- VS 98.1 18 174/107 75 96% ON RA- ABD SOFT/ROUND/NON-TENDER, BS X4 QUADS- LAST BM REPORTED 01/11/20- IV NOTED TO RIGHT AC INTACT, IVF INFUSSING PRESCRIBED- PT DENIES ANY C/O PAIN/DISCOMFORT AT TIME OF ADMISSION- K+ REPLACED PER ORDERS IN ER PRIOR TO ADMISSION TO UNIT-PT DENIES ANY OPEN AREAS/SOARS-PT DENIES ANY C/O PAIN/DISCOMFORT AT TIME OF ADMISSION- CALL LIGHT AND PERSONAL BELONGINGS WITH IN REACH- HOURLY ROUNDS IN PLACE R/T SAFETY/NEEDS- ALL NEEDS MET AT THIS TIME-WCTM
[2020-01-11 16:15] VITALS: BP 171/102
[2020-01-11 20:04] VITALS: BP 138/104
[2020-01-12] VITALS: BP 140/98
[2020-01-12 03:50] LABS: CALCIUM 8.3 mg/dL (8.5-10.1); MAGNESIUM 1.5 mg/dL (1.8-2.4); POTASSIUM 3.1 mmol/L (3.5-5.1)
[2020-01-12 04:13] LABS: CREATININE 3.7 mg/dL (0.6-1.3)
--- NOTE | 2020-01-12 04:45 | NUR ---
ASSUMED CARE OF PT 01/11/20 AT APPROX 1930. PT A&OX4, ON ROOM AIR, VSS, ARGUETA IN PLACE - URINE CARL, MED/SURG STATUS, IV FLUIDS INFUSING ORDERED. NO COMPLAINTS THIS SHIFT. ASSESSMENTS AND HOURLY ROUNDINGS COMPLETED. WILL CONTINUE TO MONITOR.
[2020-01-12 07:14] VITALS: BP 154/97
--- NOTE | 2020-01-12 07:47 | NUR ---
ASSUMED CARE OF PT THIS AM AROUND 714- M/S STATUS IN PLACE INDICATED- UPON ASSESSMENT PT NOTED TO BE RESTING IN BED- PT A&O X4- CONT OF BOWEL AND BLADDER, ARGUETA IN PLACE D/D CLEAR ORANGE/BLOOD TINGED URINE- SBA WITH TRANSFERS FOR SAFETY- LCTA, RESP EVEN AND UN-LABORED- VSS, O2 SAT 94% ON RA- ABD SOFT/ROUND/NON-TENDER, BS X4 QUADS- LAST BM REPORTED X2 DAYS AGO, REPORTS TO BE PASSING CLAU- IV NOTED TO RIGHT FA INTACT, IVF FINISHED THIS AM- TRACE EDEMA NOTED TO BLE- PT REPORTS HEADACHE ON AND OFF 11/22, STATES HE THINKS IT WILL GET BETTER AFTER BREAKFAST THIS AM- CALL LIGHT AND PERSONAL BELONGINGS WITH IN REACH- PT MAKES NEEDS KNOWN- ALL NEEDS MET AT THIS TIME-WCTM
[2020-01-12 16:00] VITALS: BP 130/95
--- NOTE | 2020-01-12 17:06 | NUR ---
PT.WAS ALERT AND ORIENTED ON PHONE CALL. HE LIVES ALONE BUT FAMILY IS SUPPORTIVE. NO USE OF DME OR HX OF HH. MAY NEED TO GO HOME WITH ARGUETA AND WOULD QUALIFY FOR HH NURSING. IS INDEPENDNET A HOME. NURSING SBA HERE IN HOSPITAL. CM WILL FOLLOW.
[2020-01-12 20:12] VITALS: BP 141/101
[2020-01-12 23:58] VITALS: BP 137/98
[2020-01-13 04:23] LABS: CALCIUM 8.2 mg/dL (8.5-10.1); MAGNESIUM 1.7 mg/dL (1.8-2.4); POTASSIUM 4.1 mmol/L (3.5-5.1)
[2020-01-13 04:25] LABS: CREATININE 2.3 mg/dL (0.6-1.3)
--- NOTE | 2020-01-13 04:29 | NUR ---
ASSUMED CARE OF PT 01/12/20 AT APPROX 1930. PT A&OX4, ON ROOM AIR, VSS, ARGUETA IN PLACE, PT UP AD JEAN PAUL, MED/SURG STATUS. NO COMPLAINTS THIS SHIFT. ASSESSMENTS AND HOURLY ROUNDINGS COMPLETED. WILL CONTINUE TO MONITOR.
[2020-01-13 07:52] VITALS: BP 124/90
--- NOTE | 2020-01-13 08:20 | NUR ---
ASSUMED CARE OF PT THIS AM AROUND 714- MS STATUS IN PLACE INDICATED- UPON ASSESSMENT PT NOTED TO BE RESTING IN BED- PT A&O X4- CONT OF B/B, ARGUETA IN PLACE D/D BLOOD TINGED URINE- LCTA, RESP EVEN AND UN-LABORED- VSS- ABD SOFT/ROUND/NON-TENDER, BS X4 QUADS- LAST BM REPORTED ON PRIOR SHIFT- IV NOTED TO RIGHT FA INTACT AND SL- MG CURRENLTY BEING REPLACED PER PROTOCOL WITH REDRAW TO FOLLOW- PT DENEIS ANY C/O PAIN/DISCOMFORT AT THIS TIME- CALL LIGHT AND PERSONAL BELONGINGS WITH IN REACH- PT MAKES NEEDS KNOWN- ALL NEEDS MET AT THIS TIME-WCTM
[2020-01-13] MEDS ORDERED: FLOMAX0.4 MG PO (09:13)
[2020-01-13 09:46] VITALS: BP 124/90
--- NOTE | 2020-01-13 14:57 | NUR ---
PT.TO DISCHARGE TODAY. SPOKE WITH PT.ON PHONE. HE WOULD FEEL MORE COMFORTABLE GOING HOME IF HE HAD A HOME HEALTH NURSE TO CHECK ON HIS ARGUETA CATHETER. HE SAID HE USED SOMEONE BEFORE WHEN HE WAS HERE. LOOKED BACK IN COMPUTER CHARTING WHICH SHOWED HE USED [facility] FOR HH IN 2011. HE WOULD LIKE TO USE THEM AGAIN. FAXED ORDER FOR HH,OBTAINED BY NURSING, TO [facility] ALONG WITH REFERRAL INFORMATION AND DISCHARGE SUMMARY. HOME HEALTH INFORMATION PUT IN DISCHARGE INSTRUCTIONS.
[2020-01-13 15:58] VITALS: BP 115/78
== END 2020-01-13 16:55 | disposition home health service (06) | DRG 683 ==
LOC: M.ERS 09:03 → M.TBA-ER 10:34 → M.2W 10:34
PROVIDERS: Emergency Medicine; ADMIT Internal Medicine
DX: N17.0 Acute kidney failure with tubular necrosis (principal); N13.8 Other obstructive and reflux uropathy; E44.1 Mild protein-calorie malnutrition; N40.1 Benign prostatic hyperplasia with lower urinary tract symptoms; C61 Malignant neoplasm of prostate; J44.9 Chronic obstructive pulmonary disease, unspecified; N40.0 Benign prostatic hyperplasia without lower urinary tract symptoms; F32.9 Major depressive disorder, single episode, unspecified; I25.10 Atherosclerotic heart disease of native coronary artery without angina pectoris; E83.52 Hypercalcemia; E87.6 Hypokalemia; I10 Essential (primary) hypertension; E83.42 Hypomagnesemia; Z87.442 Personal history of urinary calculi; Z68.26 Body mass index [BMI] 26.0-26.9, adult; Z79.899 Other long term (current) drug therapy